=== PATIENT | male | born 1980 | race Two or more races ===

== ENCOUNTER → 2024-10-26 | Emergency (ER) | payer OTHER ==
[~2024-10-26] VITALS: Ht 177.8 cm; Wt 109.8 kg
[~2024-10-26] MED LIST: FOCALIN10 MG PO; MOUNJARO10 MG/0.5 SQ
[2024-10-26 13:06] LABS: BASO % 0.6 % (0.1-1.2); EOS # 0.10 (0.04-0.54); EOS % 1.5 % (0.7-7.0); LYMPH # 1.83 (1.18-3.74); LYMPH % 27.9 % (19.3-53.1); MEAN PLATELET VOLUME 9.40 fl (9.4-12.4); MONO # 0.56 (0.24-0.82); MONO % 8.5 % (4.7-12.5); NEUT # 4.02 (1.56-6.13); NEUT % 61.2 % (34.0-71.1); RED CELL DISTRIBUTION WIDTH 12.5 % (11.6-14.4)
[2024-10-26 13:31] LABS: ALT/SGPT 37.0 U/L (12-78); AST/SGOT 16.0 U/L (15-37); BILIRUBIN TOTAL 0.54 mg/dL (0.3-1.2); BUN CREA RATIO 10.0 (7.0-25.0); CREATININE SERUM 1.0 mg/dL (0.70-1.30); GFR 81.94; GLOBULINA 3.6 G/DL (2.4-3.5); GLUCOSE FASTING 98.0 mg/dL (65-100); OSMOLALITY SERUM 277.0 MOSM/KG (275-295)
== END | disposition home or self-care (01) ==
LOC: ER 11:56
PROVIDERS: General Practice
DX: R00.2 Palpitations (principal)